=== PATIENT | male | born 1945 | race Caucasian/White ===

== ENCOUNTER → 2017-06-17 | Outpatient (REF) | payer MEDICARE ==
[2017-06-17 18:18] LABS: REASON FOR REVIEW OTHER; SLIDE REVIEW Report; SOURCE PERIPHERAL SMEAR
[2017-06-17 18:44] LABS: VITAMIN B12 LEVEL 309 PG/ML (247-911)
[2017-06-17 19:19] LABS: HIV 1&2 SCREEN CENTAUR NEGATIVE (NEGATIVE)
== END ==
LOC: M LAB REF 16:29
DX: D69.6 Thrombocytopenia, unspecified (principal); Z79.899 Other long term (current) drug therapy
CPT/HCPCS: 82525

== ENCOUNTER → 2017-06-19 | Outpatient (CLI) | payer MEDICARE | LOC: M RAD 06:06 | DX: D69.6 Thrombocytopenia, unspecified (principal); Z72.89 Other problems related to lifestyle; R16.1 Splenomegaly, not elsewhere classified; N28.1 Cyst of kidney, acquired | CPT/HCPCS: 76700 ==

== ENCOUNTER 2018-02-12 10:03 | Emergency (ER) | payer MEDICARE, BC, OTHER ==
[2018-02-12 11:11] LABS: BASO % 0.6 % (0.0-1.0); EOS # 0.2 10^3/uL (0.0-0.50); EOS % 3.8 % (0.0-3.0); HEMATOCRIT 38.3 % (42.0-52.0); HEMOGLOBIN 13.3 g/dl (13.5-17.5); IMMATURE GRANULOCYTE % 0.3 % (0-3.0); LYMPH # 1.1 10^3/uL (1.5-4.5); LYMPH % 17.9 % (24.0-44.0); MEAN CORPUSCULAR HEMOGLOBIN 33.3 pg (27.0-33.0); MEAN CORPUSCULAR HGB CONC 34.7 g/dl (32.0-36.5); MEAN CORPUSCULAR VOLUME 95.8 fl (80.0-96.0); MONO # 0.7 10^3/uL (0.0-0.8); MONO % 11.1 % (0.0-5.0); NEUTROPHILS # 4.2 10^3/uL (1.8-7.7); NEUTROPHILS % 66.3 % (36.0-66.0); RED CELL DISTRIBUTION WIDTH 12.7 % (11.5-14.5); WHITE BLOOD COUNT 6.3 10^3/uL (4.0-10.0)
[2018-02-12 11:15] LABS: PARTIAL THROMBOPLASTIN TIME 29.2 SECONDS (25.4-37.6); PROTHROMBIN TIME 13.3 SECONDS (12.1-14.4)
[2018-02-12 11:21] LABS: ANION GAP 7 MEQ/L (8-16); BLOOD UREA NITROGEN 17 MG/DL (7-18); CALCIUM LEVEL 8.3 MG/DL (8.8-10.2); CARBON DIOXIDE LEVEL 26 MEQ/L (21-32); CHLORIDE LEVEL 109 MEQ/L (98-107); CK-MB VALUE MASS < 1.0 NG/ML (<3.6); CPK CREATINE PHOSPHOKINASE 38 U/L (39-308); CREATININE FOR GFR 1.35 MG/DL (0.70-1.30); GLUCOSE, FASTING 132 MG/DL (70-100); MB/CK RELATIVE INDEX 2.63 (< OR =4); POTASSIUM SERUM 4.4 MEQ/L (3.5-5.1); SODIUM LEVEL 142 MEQ/L (136-145); TROPONIN I < 0.02 NG/ML (< 0.10)
[2018-02-12 11:35] LABS: PLATELET COUNT, AUTOMATED 34 10^3/uL (150-450)
[2018-02-12 16:06] LABS: PLTBLUE- EDTA FREE CALC 31 K/mm3 (172-450)
[2018-02-12 16:10] LABS: PLTBLUE- EDTA FREE MACHINE 28 10^3/uL (172-450)
== END 2018-02-12 17:18 | disposition home or self-care (01) ==
LOC: M ED 10:03
DX: R51 Headache (principal); G20 Parkinson's disease; D69.6 Thrombocytopenia, unspecified; R90.82 White matter disease, unspecified; I10 Essential (primary) hypertension; E78.9 Disorder of lipoprotein metabolism, unspecified; I25.10 Atherosclerotic heart disease of native coronary artery without angina pectoris; I25.2 Old myocardial infarction; Z79.899 Other long term (current) drug therapy; Z91.030 Bee allergy status
CPT/HCPCS: 70551

== ENCOUNTER → 2018-12-08 | Outpatient (REF) | payer MEDICARE ==
[~2018-12-08] MED LIST: ATOR40TA75 PO; AZEL0.055; METO1TAB7 PO; RAMI1CAP26 PO
== END ==
LOC: M LAB REF 13:08
PROVIDERS: ATTEND Plastic Surgery Surgery of the Hand
DX: D49.2 Neoplasm of unspecified behavior of bone, soft tissue, and skin (principal)

== ENCOUNTER → 2020-06-01 | Outpatient (CLI) | payer MEDICARE | LOC: M LABSMTC 09:31 | PROVIDERS: ATTEND Internal Medicine Cardiovascular Disease | DX: Z20.822 Contact with and (suspected) exposure to COVID-19 (principal); R06.02 Shortness of breath ==

== ENCOUNTER → 2020-09-18 | Outpatient (CLI) | payer MEDICARE ==
--- NOTE | 2020-10-11 13:25 | REP ---
INDICATION: OTHER NON SPECIFC ABNORMAL FINDING OF LUNG FIELD COMPARISON: The only prior CT of the chest of 09/06/2005. TECHNIQUE: Standard helical technique without intravenous contrast. FINDINGS: Original exam date 09/18/2020, however, on that day history for "reason for exam "was requested. No additional history was given and up to and including today the only history for the exam is "other nonspecific abnormal finding of the lung field". Additionally, on 09/18/2020 a request for obtaining the prior outside studies if any was also made. The only response to that request was a prior chest x-ray from 05/21/2020 which showed chronic changes stable from an older examination of 05/12/2017. Today's limited noncontrast enhanced chest CT shows the mediastinum and pulmonary beronica are to have borderline and mildly enlarged lymph nodes representing a change from the prior chest CT. The imaged upper abdomen shows an increase in size of the previously noted right renal cyst. There is no significant change in the appearance of the imaged osseous structures. There is four-chamber cardiac enlargement. Evaluation of the lung huggins shows significant respiratory motion artifact obscuring the detail on all images. Significant nodules could be obscured by this. The interstitial markings are somewhat diffusely increased but seen in limited fashion due to the artifact. There is biapical pleuroparenchymal scarring which may have increased slightly. IMPRESSION: 1. Marked exam limitations as described above. Repeat chest CT should be considered. 2. Lung field findings as described above. Consider pulmonary consultation. 3. Other findings and limitations as described above. <Electronically signed by Casey Greenberg > 10/11/20 [id number]
== END ==
LOC: M RAD 11:25
PROVIDERS: ATTEND Physician Assistant
DX: R91.8 Other nonspecific abnormal finding of lung field (principal)

== ENCOUNTER → 2021-05-30 | Outpatient (REF) | payer MEDICARE ==
[~2021-05-30] MED LIST changes: +ASPI81TA26; +NOXI1TAB PO
[2021-05-30 14:28] LABS: HEMOGLOBIN A1c 4.7 %
== END ==
LOC: M LAB REF 13:30
PROVIDERS: ATTEND Family Medicine
DX: E55.9 Vitamin D deficiency, unspecified (principal); R73.01 Impaired fasting glucose; Z79.899 Other long term (current) drug therapy

== ENCOUNTER → 2022-01-03 | Outpatient (REF) | payer MEDICARE ==
[~2022-01-03] MED LIST changes: -ASPI81TA26; +ASPI81TA26 PO
[2022-01-03 10:13] LABS: ALBUMIN 3.2 GM/DL (3.2-5.2); BILIRUBIN,TOTAL 3.6 MG/DL (0.2-1.0); CHOLESTEROL RISK RATIO 1.805 (<5); CREATININE FOR GFR 1.25 MG/DL (0.70-1.30); GLOMERULAR FILTRATION RATE 59.5 (>42); POTASSIUM SERUM 4.4 MEQ/L (3.5-5.1); TOTAL PROTEIN 6.7 GM/DL (6.4-8.2)
[2022-01-03 10:28] LABS: HEMOGLOBIN A1c 5.1 %
[2022-01-03 10:40] LABS: TOTAL 25(OH) VITAMIN D 25.7 NG/ML (30.0-100.0)
== END ==
LOC: M LAB REF 08:55
PROVIDERS: ATTEND Family Medicine
DX: E55.9 Vitamin D deficiency, unspecified (principal); I10 Essential (primary) hypertension; R73.01 Impaired fasting glucose; Z79.82 Long term (current) use of aspirin

== ENCOUNTER → 2022-03-20 | Outpatient (CLI) | payer MEDICARE | LOC: M LABSMTC 10:24 | PROVIDERS: ATTEND Anesthesiology | DX: Z01.812 Encounter for preprocedural laboratory examination (principal); Z20.822 Contact with and (suspected) exposure to COVID-19 ==

== ENCOUNTER → 2022-03-20 | Outpatient (CLI) | payer MEDICARE | LOC: M RAD 10:15 | PROVIDERS: ATTEND Family Medicine | DX: I71.40 Abdominal aortic aneurysm, without rupture, unspecified (principal) ==

== ENCOUNTER 2022-03-24 07:27 | Day surgery (SDC) | payer MEDICARE ==
[~2022-03-24] VITALS: Ht 182.9 cm; Wt 83.9 kg
[~2022-03-24 07:27] MED LIST changes: +BSS IRRIG/VANCO(10MG)/TOBRA(5MG)/EPINEPH(1:1000-0.5CC)500ML BAG-ORONLY IR ONE; +CEFUROXIME 1MG/0.1ML INTRACAMERAL INJ As Ordered ONE; +LIDOCAINE 1% SDV 5ML VIAL As Ordered ONE; +LIDOCAINE 3.5 % 1ML OPHTH TOPICAL GEL OU ONE; +MIDAZOLAM INJ 2MG/2ML VIAL (J2250 PER 1MG) As Ordered ONE; +OFLOXACIN 0.3 % (OCUFLOX) OPTH SOL 5ML OS ONE; +PHENYLEPHRINE HCL 10 % OPHTH. SOL 5ML OS PRN; +fentaNYL 100 MCG/2 ML INJECTION As Ordered ONE
[2022-03-24] MEDS: PHENYLEPHRINE 2.5% OPHTH SOL 2ML OS SCH ×3 (07:53→08:02)
[2022-03-24] MEDS: CYCLOPENTOLATE 1% OPHTH SOLN 2 ML BTL OS SCH ×3 (07:54→08:01)
[2022-03-24] MEDS: TROPICAMIDE 1% OPHTH SOLN 2ML OS SCH ×3 (07:54→08:02)
[2022-03-24 08:45] VITALS: BP 169/74
== END 2022-03-24 09:10 | disposition home or self-care (01) ==
LOC: M SDC 07:27
PROVIDERS: ATTEND Ophthalmology
DX: H25.12 Age-related nuclear cataract, left eye (principal); I25.10 Atherosclerotic heart disease of native coronary artery without angina pectoris; I25.2 Old myocardial infarction; E78.5 Hyperlipidemia, unspecified; K57.92 Diverticulitis of intestine, part unspecified, without perforation or abscess without bleeding; D64.9 Anemia, unspecified; Z79.51 Long term (current) use of inhaled steroids; Z91.030 Bee allergy status; Z79.82 Long term (current) use of aspirin; Z79.899 Other long term (current) drug therapy
CPT/HCPCS: 66984; J0697; J2250; J3010; V2632

== ENCOUNTER → 2022-05-21 | Outpatient (CLI) | payer MEDICARE ==
[~2022-05-21] MED LIST changes: -BSS IRRIG/VANCO(10MG)/TOBRA(5MG)/EPINEPH(1:1000-0.5CC)500ML BAG-ORONLY IR ONE; -CEFUROXIME 1MG/0.1ML INTRACAMERAL INJ As Ordered ONE; -LIDOCAINE 1% SDV 5ML VIAL As Ordered ONE; -LIDOCAINE 3.5 % 1ML OPHTH TOPICAL GEL OU ONE; -MIDAZOLAM INJ 2MG/2ML VIAL (J2250 PER 1MG) As Ordered ONE; -OFLOXACIN 0.3 % (OCUFLOX) OPTH SOL 5ML OS ONE; -PHENYLEPHRINE HCL 10 % OPHTH. SOL 5ML OS PRN; -fentaNYL 100 MCG/2 ML INJECTION As Ordered ONE
== END ==
LOC: M LABSMTC 10:03
PROVIDERS: ATTEND Anesthesiology
DX: Z01.812 Encounter for preprocedural laboratory examination (principal); Z11.52 Encounter for screening for COVID-19

== ENCOUNTER 2022-05-26 06:23 | Day surgery (SDC) | payer MEDICARE ==
[~2022-05-26] VITALS: Ht 182.9 cm; Wt 82.6 kg
[~2022-05-26 06:23] MED LIST changes: +BSS IRRIG/VANCO(10MG)/TOBRA(5MG)/EPINEPH(1:1000-0.5CC)500ML BAG-ORONLY IR ONE; +CYCLOPENTOLATE 1% OPHTH SOLN 2ML BTL OD SCH; +LIDOCAINE 3.5 % 1ML OPHTH TOPICAL GEL OU ONE; +OFLOXACIN 0.3 % (OCUFLOX) OPTH SOL 5ML OD ONE; +PHENYLEPHRINE 10% OPHTH SOL 5ML OD PRN; +PHENYLEPHRINE 2.5% OPHTH SOL 2ML OD SCH; +TROPICAMIDE 1% OPHTH SOLN 15ML OD SCH
[2022-05-26] MEDS ORDERED: LIDOCAINE 1% SDV 5ML VIAL As Ordered ONE (06:56)
[2022-05-26] MEDS ORDERED: CEFUROXIME 1MG/0.1ML INTRACAMERAL INJ As Ordered ONE (06:56)
[2022-05-26] MEDS ORDERED: MIDAZOLAM INJ 2MG/2ML VIAL As Ordered ONE (07:21)
[2022-05-26 08:29] VITALS: BP 151/67
== END 2022-05-26 08:40 | disposition home or self-care (01) ==
LOC: M SDC 06:23
PROVIDERS: ATTEND Ophthalmology
DX: H25.11 Age-related nuclear cataract, right eye (principal); E78.5 Hyperlipidemia, unspecified; I20.9 Angina pectoris, unspecified; Z95.1 Presence of aortocoronary bypass graft; I25.2 Old myocardial infarction; Z79.899 Other long term (current) drug therapy; Z87.891 Personal history of nicotine dependence
CPT/HCPCS: 66984; V2632

== ENCOUNTER → 2022-11-06 | Outpatient (CLI) | payer MEDICARE ==
[~2022-11-06] MED LIST changes: -BSS IRRIG/VANCO(10MG)/TOBRA(5MG)/EPINEPH(1:1000-0.5CC)500ML BAG-ORONLY IR ONE; -CYCLOPENTOLATE 1% OPHTH SOLN 2ML BTL OD SCH; -LIDOCAINE 3.5 % 1ML OPHTH TOPICAL GEL OU ONE; -OFLOXACIN 0.3 % (OCUFLOX) OPTH SOL 5ML OD ONE; -PHENYLEPHRINE 10% OPHTH SOL 5ML OD PRN; -PHENYLEPHRINE 2.5% OPHTH SOL 2ML OD SCH; -TROPICAMIDE 1% OPHTH SOLN 15ML OD SCH
[2022-11-06 13:55] LABS: ALBUMIN 3.2 G/DL (3.2-5.2); ALKALINE PHOSPHATASE 156 U/L (46-116); ALT/SGPT 27 U/L (7.0-40); AST/SGOT 36 U/L (<34); BILIRUBIN,TOTAL 6.1 MG/DL (0.3-1.2); BLOOD UREA NITROGEN 13 MG/DL (9-23); CALCIUM LEVEL 9.4 MG/DL (8.3-10.6); CARBON DIOXIDE LEVEL 25 MMOL/L (20-31); CHLORIDE LEVEL 106 MMOL/L (98-107); CREATININE FOR GFR 1.13 MG/DL (0.70-1.30); GLOMERULAR FILTRATION RATE > 60.0 (>42); GLUCOSE, FASTING 109 MG/DL (74-106); POTASSIUM SERUM 4.3 MMOL/L (3.5-5.1); SODIUM LEVEL 137 MMOL/L (136-145); TOTAL 25(OH) VITAMIN D 18.9 NG/ML (20.0-100.0); TOTAL PROTEIN 6.6 G/DL (5.7-8.2)
[2022-11-06 14:04] LABS: BASO % 0.2 % (0.0-1.0); EOS # 0.1 10^3/uL (0.0-0.5); EOS % 0.9 % (0.0-3.0); HEMATOCRIT 43.2 % (42.0-52.0); HEMOGLOBIN 14.7 g/dl (13.5-17.5); LYMPH # 0.8 10^3/uL (1.5-5.0); LYMPH % 14.1 % (24.0-44.0); MEAN CORPUSCULAR HEMOGLOBIN 35.4 pg (27.0-33.0); MEAN CORPUSCULAR VOLUME 104.1 fl (80.0-96.0); MONO # 0.7 10^3/uL (0.0-0.8); MONO % 12.8 % (2.0-8.0); NEUTROPHILS # 3.9 10^3/uL (1.5-8.5); NEUTROPHILS % 71.6 % (36.0-66.0); RED BLOOD COUNT 4.15 10^6/uL (4.30-6.10); WHITE BLOOD COUNT 5.4 10^3/uL (4.0-10.0)
[2022-11-06 14:11] LABS: PLATELET COUNT, AUTOMATED 50 10^3/uL (150-450)
[2022-11-06 18:03] LABS: HEMOGLOBIN A1c 4.6 % (4.0-6.0)
== END ==
LOC: M WUC 09:37
PROVIDERS: ATTEND Family Medicine
DX: E55.9 Vitamin D deficiency, unspecified (principal); I10 Essential (primary) hypertension; R73.01 Impaired fasting glucose

== ENCOUNTER → 2023-04-15 | Outpatient (REF) | payer MEDICARE ==
[~2023-04-15] MED LIST changes: +OSTE1TAB2 PO
[2023-04-15 11:32] LABS: CHOLESTEROL RISK RATIO 2.37 (<5); HDL CHOLESTEROL 55.2 MG/DL (>40); LDL CHOLESTEROL 63.4 MG/DL (<100); NON-HDL-C 75.8 MG/DL
== END ==
LOC: M WUC 10:22
PROVIDERS: ATTEND Physician Assistant
DX: E78.00 Pure hypercholesterolemia, unspecified (principal)

== ENCOUNTER → 2023-12-07 | Outpatient (CLI) | payer MEDICARE ==
[~2023-12-07] MED LIST changes: -AZEL0.055; +AZEL1SPR4; +RAMI10CA64 PO; -RAMI1CAP26 PO
[2023-12-07 10:26] LABS: BASO % 0.2 % (0.0-1.0); EOS % 0.7 % (0.0-3.0); HEMATOCRIT 41.9 % (42.0-52.0); HEMOGLOBIN 14.2 g/dl (13.5-17.5); LYMPH % 16.7 % (24.0-44.0); MEAN CORPUSCULAR HEMOGLOBIN 34.7 pg (27.0-33.0); MEAN CORPUSCULAR HGB CONC 33.9 g/dl (32.0-36.5); MEAN CORPUSCULAR VOLUME 102.4 fl (80.0-96.0); MONO # 0.6 10^3/uL (0.0-0.8); MONO % 10.7 % (2.0-8.0); NEUTROPHILS # 4.1 10^3/uL (1.5-8.5); NEUTROPHILS % 71.3 % (36.0-66.0); RED BLOOD COUNT 4.09 10^6/uL (4.30-6.10); WHITE BLOOD COUNT 5.7 10^3/uL (4.0-10.0)
[2023-12-07 10:35] LABS: PLATELET COUNT, AUTOMATED 46 10^3/uL (150-450)
[2023-12-07 10:42] LABS: HEMOGLOBIN A1c 4.6 % (4.0-6.0)
[2023-12-07 10:57] LABS: ALBUMIN 3.1 G/DL (3.2-5.2); ALKALINE PHOSPHATASE 141 U/L (46-116); ALT/SGPT 27 U/L (7.0-40); AST/SGOT 31 U/L (<34); BILIRUBIN,TOTAL 4.9 MG/DL (0.3-1.2); BLOOD UREA NITROGEN 14 MG/DL (9-23); CALCIUM LEVEL 8.6 MG/DL (8.3-10.6); CARBON DIOXIDE LEVEL 27 MMOL/L (20-31); CHLORIDE LEVEL 105 MMOL/L (98-107); CHOLESTEROL LEVEL 126 MG/DL (<200); CHOLESTEROL RISK RATIO 2.34 (<5); CREATININE FOR GFR 1.18 MG/DL (0.70-1.30); GLOMERULAR FILTRATION RATE > 60.0 (>35); GLUCOSE, FASTING 97 MG/DL (74-106); HDL CHOLESTEROL 53.8 MG/DL (>40); LDL CHOLESTEROL 59.8 MG/DL (<100); NON-HDL-C 72.2 MG/DL; POTASSIUM SERUM 4.1 MMOL/L (3.5-5.1); SODIUM LEVEL 138 MMOL/L (136-145); TOTAL PROTEIN 6.5 G/DL (5.7-8.2); TRIGLYCERIDES LEVEL 62 MG/DL (<150)
== END ==
LOC: M WUC 08:55
PROVIDERS: ATTEND Family Medicine
DX: I10 Essential (primary) hypertension (principal); R73.01 Impaired fasting glucose

== ENCOUNTER → 2024-01-14 | Outpatient (CLI) | payer MEDICARE | LOC: M WUC 10:01 | PROVIDERS: ATTEND Family Medicine | DX: M54.9 Dorsalgia, unspecified (principal); M85.88 Other specified disorders of bone density and structure, other site ==

== ENCOUNTER 2024-01-24 20:03 | Emergency (ER) | payer MEDICARE ==
[~2024-01-24] VITALS: Ht 185.4 cm; Wt 72.7 kg
[2024-01-24 23:06] LABS: BASO % 0.2 % (0.0-1.0); EOS % 0.1 % (0.0-3.0); HEMATOCRIT 39.8 % (42.0-52.0); HEMOGLOBIN 13.8 g/dl (13.5-17.5); LYMPH # 0.3 10^3/uL (1.5-5.0); LYMPH % 1.4 % (24.0-44.0); MEAN CORPUSCULAR HEMOGLOBIN 34.8 pg (27.0-33.0); MEAN CORPUSCULAR HGB CONC 34.7 g/dl (32.0-36.5); MEAN CORPUSCULAR VOLUME 100.5 fl (80.0-96.0); MONO % 5.3 % (2.0-8.0); NEUTROPHILS % 92.6 % (36.0-66.0); RED BLOOD COUNT 3.96 10^6/uL (4.30-6.10); WHITE BLOOD COUNT 19.5 10^3/uL (4.0-10.0)
[2024-01-24 23:28] LABS: LIPASE 18 U/L (12-53)
[2024-01-24 23:30] LABS: ALBUMIN 3.3 G/DL (3.2-5.2); ALKALINE PHOSPHATASE 157 U/L (46-116); ALT/SGPT 33 U/L (7.0-40); AST/SGOT 36 U/L (<34); BILIRUBIN,DIRECT 0.8 MG/DL (<0.4); BILIRUBIN,TOTAL 5.5 MG/DL (0.3-1.2); BLOOD UREA NITROGEN 21 MG/DL (9-23); CARBON DIOXIDE LEVEL 24 MMOL/L (20-31); CHLORIDE LEVEL 107 MMOL/L (98-107); CREATININE FOR GFR 1.16 MG/DL (0.70-1.30); GLOMERULAR FILTRATION RATE > 60.0 (>35); GLUCOSE, FASTING 146 MG/DL (74-106); POTASSIUM SERUM 4.5 MMOL/L (3.5-5.1); SODIUM LEVEL 139 MMOL/L (136-145); TOTAL PROTEIN 6.7 G/DL (5.7-8.2)
[2024-01-24 23:50] LABS: PLATELET COUNT, AUTOMATED 59 10^3/uL (150-450)
[2024-01-24] MEDS: NS 1,000 ML IV ONE (23:54)
[2024-01-25] MEDS ORDERED: ISOVUE-370 76% 100ML VIAL As Ordered ONE (00:03)
[2024-01-25 03:10] VITALS: BP 136/74; TEMP 98; O2SAT 97
== END 2024-01-25 03:12 | disposition home or self-care (01) ==
LOC: M ED 20:03
DX: K59.00 Constipation, unspecified (principal); I25.2 Old myocardial infarction; K21.9 Gastro-esophageal reflux disease without esophagitis; K57.30 Diverticulosis of large intestine without perforation or abscess without bleeding; Z79.82 Long term (current) use of aspirin; Z79.02 Long term (current) use of antithrombotics/antiplatelets; Z79.899 Other long term (current) drug therapy; Z91.030 Bee allergy status
CPT/HCPCS: 36415; 74018; 74177; 80048; 80076; 83690; 85025; 85049; 85055; 99284; Q9967

== ENCOUNTER → 2024-02-17 | Outpatient (CLI) | payer MEDICARE | LOC: M RAD 07:55 | PROVIDERS: ATTEND Family Medicine | DX: I77.811 Abdominal aortic ectasia (principal) ==

== ENCOUNTER → 2024-05-29 | Outpatient (CLI) | payer MEDICARE ==
[2024-05-29 15:11] LABS: BASO % 0.2 % (0.0-1.0); EOS # 0.1 10^3/uL (0.0-0.5); EOS % 0.7 % (0.0-3.0); HEMATOCRIT 39.1 % (42.0-52.0); HEMOGLOBIN 13.3 g/dl (13.5-17.5); LYMPH # 0.7 10^3/uL (1.5-5.0); LYMPH % 7.2 % (24.0-44.0); MONO # 1.2 10^3/uL (0.0-0.8); MONO % 11.8 % (2.0-8.0); NEUTROPHILS % 79.7 % (36.0-66.0); RED BLOOD COUNT 3.91 10^6/uL (4.30-6.10); WHITE BLOOD COUNT 10.1 10^3/uL (4.0-10.0)
[2024-05-29 15:14] LABS: PLATELET COUNT, AUTOMATED 58 10^3/uL (150-450)
[2024-05-29 15:35] LABS: ALBUMIN 2.7 G/DL (3.2-5.2); BILIRUBIN,TOTAL 3.7 MG/DL (0.3-1.2); CALCIUM LEVEL 8.5 MG/DL (8.3-10.6); CREATININE FOR GFR 1.24 MG/DL (0.70-1.30); GLOMERULAR FILTRATION RATE 59.7 (>35); POTASSIUM SERUM 3.9 MMOL/L (3.5-5.1); TOTAL PROTEIN 6.5 G/DL (5.7-8.2)
== END ==
LOC: M RAD 14:34
PROVIDERS: ATTEND Registered Nurse
DX: J06.9 Acute upper respiratory infection, unspecified (principal); J18.9 Pneumonia, unspecified organism

== ENCOUNTER 2024-05-30 13:52 | Emergency (ER) | payer MEDICARE ==
[~2024-05-30] VITALS: Ht 157.5 cm; Wt 73.6 kg
[2024-05-30 14:35] LABS: BASO % 0.1 % (0.0-1.0); EOS % 0.1 % (0.0-3.0); HEMATOCRIT 38.3 % (42.0-52.0); HEMOGLOBIN 12.9 g/dl (13.5-17.5); LYMPH # 0.4 10^3/uL (1.5-5.0); LYMPH % 6.2 % (24.0-44.0); MEAN CORPUSCULAR HEMOGLOBIN 33.6 pg (27.0-33.0); MEAN CORPUSCULAR HGB CONC 33.7 g/dl (32.0-36.5); MEAN CORPUSCULAR VOLUME 99.7 fl (80.0-96.0); MONO # 0.3 10^3/uL (0.0-0.8); MONO % 4.5 % (2.0-8.0); NEUTROPHILS # 6.1 10^3/uL (1.5-8.5); NEUTROPHILS % 87.9 % (36.0-66.0); RED BLOOD COUNT 3.84 10^6/uL (4.30-6.10); WHITE BLOOD COUNT 6.9 10^3/uL (4.0-10.0)
[2024-05-30 14:50] LABS: PLATELET COUNT, AUTOMATED 67 10^3/uL (150-450)
[2024-05-30 15:05] LABS: BLOOD UREA NITROGEN 21 MG/DL (9-23); CALCIUM LEVEL 8.6 MG/DL (8.3-10.6); CARBON DIOXIDE LEVEL 22 MMOL/L (20-31); CHLORIDE LEVEL 111 MMOL/L (98-107); CREATININE FOR GFR 1.09 MG/DL (0.70-1.30); GLOMERULAR FILTRATION RATE > 60.0 (>35); GLUCOSE, FASTING 177 MG/DL (74-106); POTASSIUM SERUM 4.4 MMOL/L (3.5-5.1); SODIUM LEVEL 142 MMOL/L (136-145)
[2024-05-30] MEDS ORDERED: ISOVUE-370 76% 100ML VIAL As Ordered ONE (15:05)
[2024-05-30 18:00] VITALS: BP 164/97; TEMP 98.4; O2SAT 95
== END 2024-05-30 18:23 | disposition home or self-care (01) ==
LOC: M ED 13:52
DX: J20.9 Acute bronchitis, unspecified (principal); D69.3 Immune thrombocytopenic purpura; I10 Essential (primary) hypertension; E78.5 Hyperlipidemia, unspecified; Z91.030 Bee allergy status; Z86.79 Personal history of other diseases of the circulatory system; Z79.82 Long term (current) use of aspirin; Z79.02 Long term (current) use of antithrombotics/antiplatelets; Z79.899 Other long term (current) drug therapy
CPT/HCPCS: 36415; 71260; 80048; 83605; 83880; 85025; 87040; 87486; 87581; 87633; 87798; 93005; 93041; 94760; 99285; Q9967

== ENCOUNTER → 2024-08-23 | Outpatient (CLI) | payer MEDICARE | LOC: M WUC 09:36 | PROVIDERS: ATTEND Physician Assistant | DX: R06.02 Shortness of breath (principal); J20.9 Acute bronchitis, unspecified ==

== ENCOUNTER 2025-01-09 10:21 | Observation (INO) | payer MEDICARE ==
[~2025-01-09] VITALS: Ht 182.9 cm; Wt 75.4 kg
[2025-01-09 12:59] LABS: VENOUS BASE EXCESS -5.1 (-2.0-2.0); VENOUS HCO3 20.5 MMOL/L (23.0-27.0); VENOUS O2 SATURATION 80.0 % (60.0-80.0); VENOUS PARTIAL PRESSURE CO2 40.3 mmHg (38.0-50.0); VENOUS PARTIAL PRESSURE O2 48.8 mmHg (30.0-50.0); VENOUS PH 7.325 UNITS (7.330-7.430); VENOUS STANDARD HCO3 19.9 MMOL/L; VENOUS TOTAL CO2 21.8 MMOL/L (24.0-28.0)
[2025-01-09 13:01] LABS: BASO # 0.0 10^3/uL (0.0-0.2); BASO % 0.2 % (0.0-1.0); EOS # 0.1 10^3/uL (0.0-0.5); EOS % 1.1 % (0.0-3.0); LYMPH # 0.9 10^3/uL (1.5-5.0); LYMPH % 17.0 % (24.0-44.0); MONO # 0.5 10^3/uL (0.0-0.8); MONO % 9.9 % (2.0-8.0); NEUTROPHILS # 3.8 10^3/uL (1.5-8.5); NEUTROPHILS % 71.4 % (36.0-66.0)
[2025-01-09 13:02] LABS: PLATELET COUNT, AUTOMATED 35 10^3/uL (150-450)
[2025-01-09] MEDS ORDERED: ISOVUE-370 76% 100 ML VIAL As Ordered ONE (13:34)
[2025-01-09] MEDS: IPRATROPIUM 0.5 MG/ALBUTEROL 2.5 MG INH SOL UD 3 ML NEB ONE (13:54)
[2025-01-09 14:25] LABS: ALT/SGPT 23.0 U/L (7.0-40); AST/SGOT 49.0 U/L (<34); CALCIUM LEVEL 8.6 MG/DL (8.3-10.6); CARBON DIOXIDE LEVEL 24.0 MMOL/L (20-31); CHLORIDE LEVEL 109.0 MMOL/L (98-107); CK-MB VALUE MASS 1.4 NG/ML (<3.6); CPK CREATINE PHOSPHOKINASE 36.0 U/L (46-171); CREATININE FOR GFR 1.14 MG/DL (0.70-1.30); GLOMERULAR FILTRATION RATE 64.6 (>35); MB/CK RELATIVE INDEX 3.88 (< OR =4); POTASSIUM SERUM 5.4 MMOL/L (3.5-5.1); SODIUM LEVEL 140.0 MMOL/L (136-145); THYROXINE (T4) 6.2 UG/DL (4.5-10.9)
[2025-01-09] MEDS ORDERED: ADVI200C8 PO (15:16)
[2025-01-09] MEDS ORDERED: HOME MED LIST COMPLETE! XX SCH (15:20)
[2025-01-09] MEDS ORDERED: ACETAMINOPHEN 325 MG TAB PO PRN (16:30)
[2025-01-09] MEDS ORDERED: IPRATROPIUM 0.5 MG/ALBUTEROL 2.5 MG INH SOL UD 3 ML NEB PRN (16:55)
[2025-01-09 17:22] LABS: VITAMIN B12 LEVEL 888.0 PG/ML (211-911)
[2025-01-09 17:52] VITALS: BP 153/64; TEMP 97.9; O2SAT 94
[2025-01-09] MEDS: LIDOCAINE 5% PATCH TD SCH (18:27)
[2025-01-09] MEDS: IPRATROPIUM 0.5 MG/ALBUTEROL 2.5 MG INH SOL UD 3 ML NEB SCH (19:19)
[2025-01-09] MEDS: SODIUM CHLORIDE HYPERTONIC 3% 4ML NEB SOL INH SCH (19:19)
[2025-01-09 19:47] VITALS: BP 162/69; TEMP 97.5; O2SAT 99
[2025-01-09 20:14] VITALS: O2SAT 94
[2025-01-10 04:46] VITALS: BP 122/51; TEMP 97.5; O2SAT 93
[2025-01-10] MEDS: KETOROLAC 30 MG/ML 1 ML VIAL IV PRN (04:51)
[2025-01-10 06:13] LABS: PLATELET COUNT, AUTOMATED 32 10^3/uL (150-450)
[2025-01-10 06:46] LABS: ALT/SGPT 18.0 U/L (7.0-40); AST/SGOT 21.0 U/L (<34); CALCIUM LEVEL 8.7 MG/DL (8.3-10.6); CARBON DIOXIDE LEVEL 27.0 MMOL/L (20-31); CHLORIDE LEVEL 109.0 MMOL/L (98-107); CREATININE FOR GFR 1.34 MG/DL (0.70-1.30); GLOMERULAR FILTRATION RATE 53.2 (>35); POTASSIUM SERUM 4.4 MMOL/L (3.5-5.1); SODIUM LEVEL 145.0 MMOL/L (136-145)
[2025-01-10] MEDS: PANTOPRAZOLE 40MG TAB PO SCH (08:48)
[2025-01-10] MEDS: amLODIPine 5 MG TAB PO SCH (08:49)
[2025-01-10] MEDS: SENNOSIDES/DOCUSATE SODIUM 8.6 MG/50MG TAB PO SCH (08:58)
[2025-01-10] MEDS: NS (Normal Saline) 0.9% 1,000 ML IV SCH (08:58)
[2025-01-10 11:33] VITALS: O2SAT 94
[2025-01-10 12:30] VITALS: BP 131/52; TEMP 97.9; O2SAT 95
[2025-01-10] MEDS: PREVNAR-20 VACCINE 0.5ML SYRINGE IM.IMMUN ONE (14:00)
[2025-01-10 20:04] VITALS: BP 151/58; TEMP 97.9; O2SAT 90
[2025-01-10 22:00] VITALS: O2SAT 94
[2025-01-10] MEDS: MIRALAX *UNIT DOSE* 17 GM PACKET PO PRN (22:00)
[2025-01-11 04:26] VITALS: BP 132/58; TEMP 97.7; O2SAT 92
[2025-01-11 04:29] VITALS: O2SAT 95
[2025-01-11 06:28] LABS: PLATELET COUNT, AUTOMATED 29 10^3/uL (150-450)
[2025-01-11 06:47] LABS: ALT/SGPT 16.0 U/L (7.0-40); AST/SGOT 19.0 U/L (<34); CALCIUM LEVEL 8.1 MG/DL (8.3-10.6); CARBON DIOXIDE LEVEL 25.0 MMOL/L (20-31); CHLORIDE LEVEL 110.0 MMOL/L (98-107); CREATININE FOR GFR 1.23 MG/DL (0.70-1.30); GLOMERULAR FILTRATION RATE 59.0 (>35); POTASSIUM SERUM 4.5 MMOL/L (3.5-5.1); SODIUM LEVEL 145.0 MMOL/L (136-145)
[2025-01-11 08:03] VITALS: BP 136/60
[2025-01-11 12:00] VITALS: BP 131/58; TEMP 98.1; O2SAT 96
[2025-01-11] MEDS: MOM 30 ML SUSPENSION UDC PO PRN (12:37)
[2025-01-11 13:53] VITALS: O2SAT 86; O2SAT 91
[2025-01-11] MEDS ORDERED: DOCU8.6T PO (15:06)
[2025-01-11] MEDS ORDERED: OXYC-517 PO (15:06)
[2025-01-11] MEDS ORDERED: AMLO1TAB24 PO (15:06)
[2025-01-11] MEDS ORDERED: VENTAER INH (15:06)
[2025-01-11] MEDS ORDERED: LIDO5TD TD (15:06)
== END 2025-01-11 16:12 | disposition home health service (06) ==
LOC: M ED 11:47 → M ED INP 11:48 → M MSPAV 17:42
PROVIDERS: ADMIT Internal Medicine; ATTEND Internal Medicine
DX: S22.42XA Multiple fractures of ribs, left side, initial encounter for closed fracture (principal); S22.060A Wedge compression fracture of T7-T8 vertebra, initial encounter for closed fracture; Z91.81 History of falling; Z23 Encounter for immunization; R94.4 Abnormal results of kidney function studies; I10 Essential (primary) hypertension; R09.02 Hypoxemia; E87.5 Hyperkalemia; D69.3 Immune thrombocytopenic purpura; E80.6 Other disorders of bilirubin metabolism; Z79.899 Other long term (current) drug therapy
CPT/HCPCS: 36415; 71101; 71275; 72072; 72146; 74177; 76700; 80047; 80048; 80053; 80076; 82550; 82553; 82607; 82746; 82803; 83880; 84132; 84436; 84443; 84484; 85025; 85027; 85049; 85055; 87486; 87581; 87633; 87798; 90677; 92610; 93005; 93041; 94640; 94760; 96360; 96361; 96372; 97165; 97535; 99285; G0009; G0378; J1885; Q9967

== ENCOUNTER → 2025-02-24 | Outpatient (CLI) | payer MEDICARE ==
[~2025-02-24] MED LIST changes: +ADVI200C8 PO; +AMLO1TAB24 PO; +DOCU8.6T PO; +LIDO5TD TD; +OXYC-517 PO; +VENTAER INH
== END ==
LOC: M RAD 11:59
PROVIDERS: ATTEND Physician Assistant
DX: S22.060A Wedge compression fracture of T7-T8 vertebra, initial encounter for closed fracture (principal); Y93.9 Activity, unspecified; Y92.9 Unspecified place or not applicable

== ENCOUNTER → 2025-03-29 | Outpatient (CLI) | payer MEDICARE | LOC: M RAD 10:25 | PROVIDERS: ATTEND Physician Assistant | DX: S22.060D Wedge compression fracture of T7-T8 vertebra, subsequent encounter for fracture with routine healing (principal); M47.814 Spondylosis without myelopathy or radiculopathy, thoracic region ==

== ENCOUNTER → 2025-05-01 | Outpatient (CLI) | payer MEDICARE ==
[~2025-05-01] MED LIST changes: -DOCU8.6T PO; +SENN-208 PO
== END ==
LOC: M RAD 10:12
PROVIDERS: ATTEND Physician Assistant
DX: S22.060D Wedge compression fracture of T7-T8 vertebra, subsequent encounter for fracture with routine healing (principal); Y93.9 Activity, unspecified; Y92.9 Unspecified place or not applicable